=== PATIENT | female | born 1985 | race Caucasian/White ===

== ENCOUNTER 2018-01-19 01:21 | Emergency (ER) | payer SELFPAY ==
[2018-01-19] MEDS ORDERED: predniSONE 20 MG Tab PO STA (03:01)
--- NOTE | 2018-01-19 03:07 | EDM.PDOC ---
ED HPI GENERAL MEDICAL PROBLEM - General Chief Complaint: Allergic Reaction Stated Complaint: POSSIBLE ALLERGIC REACTION LEFT SIDE OF FACE Time Seen by Provider: 01/19/18 02:26 Source of Information: Reports: Patient, Family () History Limitations: Reports: No Limitations - History of Present Illness INITIAL COMMENTS - FREE TEXT/NARRATIVE: The patient states that she developed left upper and lower lip swelling, and tingling and numbness to the left side of her face, around 21:00 tonight. She states that she had some shortness of breath with chest tightness, but denies having wheezing. She states that her left ear hurt, and clicked when she swallowed, and that she had some difficulty swallowing. She denies trauma to the left side of her head or face, including having recently been lying on the left side of the head. She states that she took some Benadryl at home, and that her symptoms improved somewhat. 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 In the past, when she has consumed alcohol, she has developed pruritic hives on her head and neck, however, she states that it doesn't happen every time she drinks. The patient's PCP is Chen Field. Left Face Pain Score (Numeric/FACES): 6 - Related Data Allergies Allergy/AdvReac Type Severity Reaction Status Date / Time No Known Allergies Allergy Verified 01/19/18 01:43 Home Meds: Home Meds EPINEPHrine [Adrenaclick] 1 injection IM ASDIRECTED PRN #1 kit 01/19/18 [Rx] predniSONE [Prednisone] 1 tab PO QPM #3 tablet 01/19/18 [Rx] Past Medical History - Past Surgical History HEENT Surgical History: Reports: Oral Surgery ([place] teeth extraction) Female Surgical History: Reports: Tubal Ligation Social & Family History - Family History Family Medical History: Noncontributory - Tobacco Use Smoking Status *Q: Never Smoker - Alcohol Use Alcohol Use History: Yes Alcohol Use Frequency: Socially - Recreational Drug Use Recreational Drug Use: No - Living Situation & Occupation Living situation: Reports: , with Spouse, with Family (3 kids) Occupation: Employed (Sales at a hotel) ED ROS ALLERGIC REACTION - Review of Systems Review Of Systems: ROS reveals no pertinent complaints other than HPI. ED EXAM GENERAL NO PERIP PULSE - Physical Exam Exam: See Below Exam Limited By: No Limitations General Appearance: Alert, WD/WN, No Apparent Distress Eye Exam: Bilateral Eye: Normal Inspection Ears: Normal External Exam, Normal Canal, Hearing Grossly Normal, Normal TMs Nose: Normal Inspection, Normal Mucosa, No Blood Throat/Mouth: Normal Teeth, Normal Gums, Normal Oropharynx, Normal Voice, No Airway Compromise, Other (Left side of both upper and lower lips swollen, particularly the lower lip. Tongue is obviously swollen, although not causing airway obstruction.) Head: Atraumatic, Facial Swelling (Mild, left-sided) Neck: Normal Inspection, Supple, Non-Tender, Full Range of Motion. No: Lymphadenopathy (L), Lymphadenopathy (R) Respiratory/Chest: No Respiratory Distress, Lungs Clear, Normal Breath Sounds, No Accessory Muscle Use, Chest Non-Tender. No: Wheezing Cardiovascular: Normal Peripheral Pulses, Regular Rate, Rhythm, No Edema, No Gallop, No JVD, No Murmur, No Rub GI/Abdominal: Normal Bowel Sounds, Soft, Non-Tender, No Organomegaly, No Distention, No Abnormal Bruit, No Mass, Other (Obese) (Female) Exam: Deferred Rectal (Female) Exam: Deferred Back Exam: Normal Inspection, Full Range of Motion, NT Extremities: Normal Inspection, Normal Range of Motion, No Pedal Edema, Normal Capillary Refill Neurological: Alert, Oriented, Normal Cognition, No Motor/Sensory Deficits Psychiatric: Normal Affect Skin Exam: Warm, Dry, Intact, Normal Color, No Rash Course - Vital Signs Last Recorded V/S: Last Vital Signs Temp 36.4 C 01/19/18 01:43 Pulse 98 01/19/18 01:43 Resp 18 01/19/18 01:43 BP 148/92 H 01/19/18 01:43 Pulse Ox 100 01/19/18 01:43 - Orders/Labs/Meds Meds: Medications Discontinued Medications Generic Name Dose Route Start Last Admin Trade Name Carmine PRN Reason Stop Dose Admin Prednisone 60 mg 01/19/18 03:01 01/19/18 03:05 Prednisone PO 01/19/18 03:02 60 mg ONETIME STA Administration - Re-Assessments/Exams Free Text/Narrative Re-Assessment/Exam: 01/19/18 03:01 The patient appears to be having an allergic reaction to, likely, beer. She has some angioedema, glossitis, and facial swelling, although no uvular swelling. She had urticaria earlier. This appears to be the most severe reaction that she has had to alcohol. In addition to 3 additional days of prednisone, I will also prescribe an epinephrine pen, and refer her to the [facility] Dr. Davison. Departure - Departure Time of Disposition: 03:03 Disposition: Home, Self-Care 01 Condition: Fair Clinical Impression: Allergic reaction - Discharge Information Prescriptions: EPINEPHrine [Adrenaclick] 1 injection IM ASDIRECTED PRN #1 kit PRN Reason: Shortness Of Breath predniSONE [Prednisone] 1 tab PO QPM #3 tablet Instructions: Allergies, Adult, [id number] Referrals: Chen Field PA-C [Primary Care Provider] - Perry Davison MD [Ordering Only Provider] - Forms: ED Department Discharge Additional Instructions: You were seen in the emergency room for left lip and face swelling, shortness of breath, and difficulty swallowing after drinking a beer. Based on your history and physical examination, you MOST LIKELY suffered an allergic reaction to one of the ingredients in the beer. You have been started on oral prednisone. A prescription for prednisone has been sent to [facility], located across the street from the hospital. Take one tablet each evening, starting this evening, , 01/19/2018. A prescription for an epinephrine injectable kit has also been sent to the [facility]. You should give herself an injection in your anterolateral thigh for shortness of breath with wheezing, associated with an allergic reaction. It may be repeated after 15 minutes, but it is essential that you go to the nearest emergency room immediately if you ever require an epinephrine injection. Follow-up with the [facility] Dr. Davison at the next available appointment, for further evaluation. If any other problems, please do not hesitate to return to the ER.
== END 2018-01-19 03:45 | disposition home or self-care (01) ==
LOC: JD.ED 01:21
DX: T78.40XA Allergy, unspecified, initial encounter (principal)
CPT/HCPCS: 99283; A9270

== ENCOUNTER 2019-09-09 16:22 | Emergency (ER) | payer MEDICAID ==
--- NOTE | 2019-09-09 17:12 | EDM.PDOC ---
ED HPI GENERAL MEDICAL PROBLEM - General Chief Complaint: General Stated Complaint: MUSCLE PAIN Time Seen by Provider: 09/09/19 17:11 - History of Present Illness INITIAL COMMENTS - FREE TEXT/NARRATIVE: 34-year-old female presents the emergency room achy all over and fevers This started roughly 2 days ago aggressively getting worse. She is had some fevers with this no nausea no vomiting no significant cough. She is just achy all over and does not feel good. The patient did not have a flu shot this year. Patient is not on any routine medications. And she is not aware of any allergies. She is drinking plenty of fluids and voiding regularly. Generalized Pain Score (Numeric/FACES): 8 - Related Data Allergies Allergy/AdvReac Type Severity Reaction Status Date / Time No Known Allergies Allergy Verified 09/09/19 16:42 Home Meds: Home Meds Naproxen [Naprosyn] 500 mg PO Q12HR #20 tab 09/09/19 [Rx] Past Medical History - Past Health History Medical/Surgical History: Denies Medical/Surgical History - Past Surgical History HEENT Surgical History: Reports: Oral Surgery Female Surgical History: Reports: Tubal Ligation Social & Family History - Family History Family Medical History: Noncontributory - Tobacco Use Smoking Status *Q: Never Smoker Second Hand Smoke Exposure: No - Caffeine Use Caffeine Use: Reports: None - Recreational Drug Use Recreational Drug Use: No - Living Situation & Occupation Living situation: Reports: , with Spouse, with Family (3 kids) Occupation: Employed (Sales at a hotel) ED ROS GENERAL - Review of Systems Review Of Systems: See Below Constitutional: Reports: Fever. Denies: Chills HEENT: Reports: No Symptoms Respiratory: Reports: No Symptoms Cardiovascular: Reports: No Symptoms GI/Abdominal: Reports: No Symptoms : Reports: No Symptoms Musculoskeletal: Reports: Other (He has achy joints and muscles) Skin: Reports: No Symptoms Neurological: Reports: No Symptoms ED EXAM, GENERAL - Physical Exam Exam: See Below Exam Limited By: Uncooperative General Appearance: No Apparent Distress, Other (But uncomfortable but tolerates exam and is very cooperative) Eye Exam: Bilateral Eye: Normal Inspection Ears: Normal External Exam, Normal Canal, Hearing Grossly Normal, Normal TMs Nose: Normal Inspection, Normal Mucosa, No Blood Throat/Mouth: Normal Inspection, Normal Lips, Normal Teeth, Normal Gums, Normal Oropharynx, Normal Voice, No Airway Compromise Head: Atraumatic, Normocephalic Neck: Normal Inspection, Supple, Non-Tender, Full Range of Motion. No: Lymphadenopathy (L), Lymphadenopathy (R) Respiratory/Chest: No Respiratory Distress, Lungs Clear, Normal Breath Sounds Cardiovascular: Regular Rate, Rhythm, No Edema, No Murmur GI/Abdominal: Normal Bowel Sounds, Soft, Non-Tender Extremities: Other (Muscle pain especially in the lower extremities to a lesser degree the upper extremities she just hurts.) Skin Exam: Warm, Dry, Intact Lymphatic: No Adenopathy Course - Vital Signs Last Recorded V/S: Last Vital Signs Temp 38.2 C H 09/09/19 16:39 Pulse 118 H 09/09/19 16:39 Resp 20 09/09/19 16:39 BP 147/104 H 09/09/19 16:39 Pulse Ox 100 09/09/19 16:39 - Orders/Labs/Meds Meds: Medications Discontinued Medications Generic Name Dose Route Start Last Admin Trade Name Carmine PRN Reason Stop Dose Admin Ketorolac Tromethamine 30 mg 09/09/19 17:58 09/09/19 18:05 Toradol IM 09/09/19 17:59 30 mg ONETIME ONE Administration - Re-Assessments/Exams Free Text/Narrative Re-Assessment/Exam: 09/09/19 18:27 Influenza A is positive did discuss Tamiflu with the patient and she chooses not to do this she has been on Tamiflu in the past and it did not work well for her. Departure - Departure Time of Disposition: 18:28 Disposition: Left Without Being Seen 07 Clinical Impression: Influenza A - Discharge Information Prescriptions: Naproxen [Naprosyn] 500 mg PO Q12HR #20 tab Referrals: Chen Field PA-C [Primary Care Provider] - Forms: ED Department Discharge Additional Instructions: Return to the emergency room with any questions problems or worsening symptoms. Push lots of fluids you should be voiding every hour and a half while awake. Take the Naprosyn as directed twice daily with small meals. Follow-up in the clinic this week if needed Sepsis Event Note - Evaluation Sepsis Screening Result: No Definite Risk - Focused Exam Vital Signs: Vital Signs Temp Pulse Resp BP Pulse Ox 09/09/19 16:39 38.2 C H 118 H 20 147/104 H 100 Date Exam was Performed: 09/09/19 Time Exam was Performed: 18:23
[2019-09-09] MEDS ORDERED: Ketorolac 30 MG/ML SDV IM ONE (17:58)
== END 2019-09-09 18:36 | disposition home or self-care (01) ==
LOC: JD.ED 16:22
DX: J10.1 Influenza due to other identified influenza virus with other respiratory manifestations (principal)
CPT/HCPCS: 87804; 96372; 99283; J1885

== ENCOUNTER 2020-01-15 00:23 | Emergency (ER) | payer MEDICAID ==
--- NOTE | 2020-01-15 00:35 | EDM.PDOC ---
ED HPI GENERAL MEDICAL PROBLEM - General Chief Complaint: Abdominal Pain Stated Complaint: ABDOMINAL PAIN Time Seen by Provider: 01/15/20 00:30 Source of Information: Reports: Patient History Limitations: Reports: No Limitations - History of Present Illness INITIAL COMMENTS - FREE TEXT/NARRATIVE: TRIAGE NOTE -- Pt c/o abominal pain that started 30 min [employer]. States bilateral lower abdomen. Does not radiate. C/o nausea yesterday. Denies vomiting or diarrhea. Denies urinary s/s. [ End ] Above. Pain is in the lower abdomen. No vomiting at this time. No readily identified risk factors. Only abdominal procedure in the past was a tubal ligation. No treatment or other measure to moderate symptoms prior to arrival. No fever respiratory symptoms or other symptoms of acute medical illness otherwise. Bilateral Lower Abdomen Pain Score (Numeric/FACES): 4 - Related Data Allergies Allergy/AdvReac Type Severity Reaction Status Date / Time No Known Allergies Allergy Verified 01/15/20 00:30 Home Meds: Home Meds . [No Known Home Meds] 01/15/20 [History] Past Medical History - Past Health History Medical/Surgical History: Denies Medical/Surgical History - Past Surgical History HEENT Surgical History: Reports: Oral Surgery Female Surgical History: Reports: Tubal Ligation Social & Family History - Family History Family Medical History: Noncontributory - Caffeine Use Caffeine Use: Reports: None - Living Situation & Occupation Living situation: Reports: , with Spouse, with Family (3 kids) Occupation: Employed (Sales at a hotel) ED ROS GENERAL - Review of Systems Review Of Systems: Comprehensive ROS is negative, except as noted in HPI. ED EXAM, GI/ABD - Physical Exam Exam: See Below Exam Limited By: No Limitations General Appearance: Alert, WD/WN, No Apparent Distress Eyes: Bilateral: EOMI Ears: Normal External Exam Nose: Normal Inspection Throat/Mouth: Normal Inspection Head: Atraumatic, Normocephalic Neck: Normal Inspection, Supple Respiratory/Chest: No Respiratory Distress, Lungs Clear Cardiovascular: Regular Rate, Rhythm, No Edema GI/Abdominal Exam: Soft, Tender (Mild tenderness especially lower abdomen). No : Guarding, Rigid, Rebound Back Exam: Normal Inspection Extremities: Normal Inspection, Non-Tender Neurological: Alert, Oriented, No Motor/Sensory Deficits Psychiatric: Normal Affect Skin Exam: Warm, Dry Course - Vital Signs Last Recorded V/S: Last Vital Signs Temp 36.5 C 01/15/20 00:30 Pulse 73 01/15/20 00:30 Resp 14 01/15/20 00:30 BP 131/87 01/15/20 00:30 Pulse Ox 100 01/15/20 00:30 - Orders/Labs/Meds Labs: Laboratory Tests 01/15/20 01/15/20 01/15/20 Range/Units 00:55 00:55 00:55 WBC (3.98-10.04) K/mm3 RBC (3.98-5.22) M/mm3 Hgb (11.2-15.7) gm/dl Hct (34.1-44.9) % MCV (79.4-94.8) fl MCH (25.6-32.2) pg MCHC (32.2-35.5) g/dl RDW Std Deviation (36.4-46.3) fL Plt Count (182-369) K/mm3 MPV (9.4-12.3) fl Neutrophils % (Manual) (40-60) % Band Neutrophils % (0-10) % Lymphocytes % (Manual) (20-40) % Atypical Lymphs % % Monocytes % (Manual) (2-10) % Eosinophils % (Manual) (0.7-5.8) % Basophils % (Manual) (0.1-1.2) Platelet Estimate Plt Morphology Comment RBC Morph Comment Sodium (136-145) mEq/L Potassium (3.5-5.1) mEq/L Chloride (98-107) mEq/L Carbon Dioxide (21-32) mEq/L Anion Gap (5-15) BUN (7-18) mg/dL Creatinine (0.55-1.02) mg/dL Est Cr Clr Drug Dosing mL/min Estimated GFR (MDRD) (>60) mL/min BUN/Creatinine Ratio (14-18) Glucose (74-106) mg/dL Calcium (8.5-10.1) mg/dL Total Bilirubin (0.2-1.0) mg/dL AST (15-37) U/L ALT (14-59) U/L Alkaline Phosphatase (46-116) U/L Total Protein (6.4-8.2) g/dl Albumin (3.4-5.0) g/dl Globulin gm/dL Albumin/Globulin Ratio (1-2) Lipase (73-393) U/L Urine Color Yellow (Yellow) Urine Appearance Slt cloudy H (Clear) Urine pH 6.5 (5.0-8.0) Ur Specific [place] > or = 1.030 (1.005-1.030) Urine Protein Negative (Negative) Urine Glucose (UA) Negative (Negative) Urine Ketones Negative (Negative) Urine Occult Blood Negative (Negative) Urine Nitrite Negative (Negative) Urine Bilirubin Negative (Negative) Urine Urobilinogen 0.2 (0.2-1.0) Ur Leukocyte Esterase Negative (Negative) Urine HCG, Qual Negative (NEGATIVE) Urine Opiates Screen Negative (ALKYJV=477) Ur Buprenorphine Scrn Negative (CUTOFF=10) Ur Oxycodone Screen Negative (AJW1HS=294) Urine Methadone Screen Negative (FXKOHY=604) Ur Propoxyphene Screen Negative (XGCAUW=136) Ur Barbiturates Screen Negative (MFSFOY=416) Ur Tricyclics Screen Negative (PTVIKM=598) Ur Phencyclidine Scrn Negative (CUTOFF=25) Ur Amphetamine Screen Negative (YZHOQI=282) U Methamphetamines Scrn Negative (JHOUII=678) U Benzodiazepines Scrn Negative (FZNGUK=536) U Cocaine Metab Screen Negative (JVEGRH=665) U Marijuana (THC) Screen Negative (CUTOFF=50) 01/15/20 01/15/20 Range/Units 01:00 01:00 WBC 7.98 (3.98-10.04) K/mm3 RBC 4.70 (3.98-5.22) M/mm3 Hgb 14.0 (11.2-15.7) gm/dl Hct 43.2 (34.1-44.9) % MCV 91.9 (79.4-94.8) fl MCH 29.8 (25.6-32.2) pg MCHC 32.4 (32.2-35.5) g/dl RDW Std Deviation 44.3 (36.4-46.3) fL Plt Count 275 (182-369) K/mm3 MPV 8.9 L (9.4-12.3) fl Neutrophils % (Manual) 43 (40-60) % Band Neutrophils % 4 (0-10) % Lymphocytes % (Manual) 42 H (20-40) % Atypical Lymphs % 0 % Monocytes % (Manual) 7 (2-10) % Eosinophils % (Manual) 2 (0.7-5.8) % Basophils % (Manual) 2 H (0.1-1.2) Platelet Estimate Adequate Plt Morphology Comment Normal RBC Morph Comment Normal Sodium 142 (136-145) mEq/L Potassium 3.9 (3.5-5.1) mEq/L Chloride 106 (98-107) mEq/L Carbon Dioxide 27 (21-32) mEq/L Anion Gap 12.9 (5-15) BUN 18 (7-18) mg/dL Creatinine 0.7 (0.55-1.02) mg/dL Est Cr Clr Drug Dosing 104.01 mL/min Estimated GFR (MDRD) > 60 (>60) mL/min BUN/Creatinine Ratio 25.7 H (14-18) Glucose 93 (74-106) mg/dL Calcium 8.6 (8.5-10.1) mg/dL Total Bilirubin 0.2 (0.2-1.0) mg/dL AST 13 L (15-37) U/L ALT 20 (14-59) U/L Alkaline Phosphatase 25 L (46-116) U/L Total Protein 7.3 (6.4-8.2) g/dl Albumin 3.5 (3.4-5.0) g/dl Globulin 3.8 gm/dL Albumin/Globulin Ratio 0.9 L (1-2) Lipase 162 (73-393) U/L Urine Color (Yellow) Urine Appearance (Clear) Urine pH (5.0-8.0) Ur Specific [place] (1.005-1.030) Urine Protein (Negative) Urine Glucose (UA) (Negative) Urine Ketones (Negative) Urine Occult Blood (Negative) Urine Nitrite (Negative) Urine Bilirubin (Negative) Urine Urobilinogen (0.2-1.0) Ur Leukocyte Esterase (Negative) Urine HCG, Qual (NEGATIVE) Urine Opiates Screen (CEIATC=443) Ur Buprenorphine Scrn (CUTOFF=10) Ur Oxycodone Screen (MZN6GH=508) Urine Methadone Screen (FGROYL=520) Ur Propoxyphene Screen (TRWFQD=514) Ur Barbiturates Screen (LVXXVF=764) Ur Tricyclics Screen (AQHSPH=284) Ur Phencyclidine Scrn (CUTOFF=25) Ur Amphetamine Screen (DROQZZ=765) U Methamphetamines Scrn (EMTIVE=955) U Benzodiazepines Scrn (UJZEUG=304) U Cocaine Metab Screen (DIBSQF=348) U Marijuana (THC) Screen (CUTOFF=50) Meds: Medications Discontinued Medications Generic Name Dose Route Start Last Admin Trade Name Carmine PRN Reason Stop Dose Admin Sodium Chloride 1,000 mls @ 1,000 mls/hr 01/15/20 00:48 01/15/20 01:05 Normal Saline IV 01/15/20 01:47 1,000 mls/hr ONETIME ONE Administration - Re-Assessments/Exams Free Text/Narrative Re-Assessment/Exam: 01/15/20 01:58 The patient is received IV fluids and feels better. There are no salient lab abnormals at all. The patient's physical exam remains fairly benign. There is slight lower abdominal tenderness on deep palpation but abdomen is perfectly soft. Discussed fully with patient and . Recommend clear liquid diet at home for at least 12 hours. Should there be any increased abdominal pain, fever, vomiting return to ER immediately. At the present time on the basis of the mildness of the presentation and absence of salient findings imaging was deferred. Departure - Departure Time of Disposition: 02:00 Disposition: Home, Self-Care 01 Condition: Good Clinical Impression: Abdominal discomfort Nausea & vomiting Qualifiers: Vomiting type: unspecified Vomiting Intractability: non-intractable Qualified Code(s): R11.2 - Nausea with vomiting, unspecified - Discharge Information *PRESCRIPTION DRUG MONITORING PROGRAM REVIEWED*: Not Applicable *COPY OF PRESCRIPTION DRUG MONITORING REPORT IN PATIENT JESSA: Not Applicable Referrals: Chen Field PA-C [Primary Care Provider] - Forms: ED Department Discharge Additional Instructions: You have been seen for abdominal pain and nausea and vomiting. You have received IV fluids for this with some improvement. In light of the mildness of the presentation imaging of the abdomen was deferred. If you have any increased abdominal pain return to ER immediately. For any vomiting return immediately. For any fever or any other troubling symptom return to the ER. Recommend follow-up by primary. Call for instructions and an appointment. Sepsis Event Note - Evaluation Sepsis Screening Result: No Definite Risk - Focused Exam Vital Signs: Vital Signs Temp Pulse Resp BP Pulse Ox 01/15/20 00:30 36.5 C 73 14 131/87 100 Date Exam was Performed: 01/15/20 Time Exam was Performed: 01:58
[2020-01-15] MEDS ORDERED: Sodium Chloride 0.9% 1,000 ML IV ONE (00:48)
== END 2020-01-15 02:13 | disposition home or self-care (01) ==
LOC: JD.ED 00:23
DX: R10.31 Right lower quadrant pain (principal); R10.32 Left lower quadrant pain; R11.2 Nausea with vomiting, unspecified; Z98.51 Tubal ligation status
CPT/HCPCS: 36415; 80053; 80306; 81003; 81025; 83690; 85007; 85027; 96360; 99284; J7030; 99282

== ENCOUNTER 2020-02-19 01:28 | Emergency (ER) | payer MEDICAID ==
[2020-02-19] MEDS ORDERED: Ondansetron 4 MG/2 ML SDV IVPUSH ONE (01:53)
[2020-02-19] MEDS ORDERED: Sodium Chloride 0.9% 1,000 ML IV SCH (02:00)
[2020-02-19] MEDS ORDERED: Ketorolac 30 MG/ML SDV IVPUSH STA (02:12)
--- NOTE | 2020-02-19 02:15 | EDM.PDOC ---
ED HPI GENERAL MEDICAL PROBLEM - General Chief Complaint: Abdominal Pain Stated Complaint: [facility] Time Seen by Provider: 02/19/20 01:37 Source of Information: Reports: Patient History Limitations: Reports: No Limitations - History of Present Illness INITIAL COMMENTS - FREE TEXT/NARRATIVE: Mrs. Barrett is a 34-year-old woman with a past surgical history significant for a bilateral tubal ligation, who now presents to the ED by EMS with a complaint of lower abdominal cramps that radiate through to her lower back, along with nausea and watery diarrhea, that all began just minutes prior to presenting to the ED. She did not take any [id number] or home remedies prior to calling EMS. Medical records indicate that the patient was seen in this ED on 01/15/2020 for essentially the same complaint. At that time, the patient was found to be hemodynamically stable, afebrile, saturating 100% on room air. Her abdominal exam revealed tenderness to the lower abdomen, but softness to palpation. Work- up at that time included a CBC, CMP, lipase level, urinalysis, urine test, and urine drug screen, all of which were completely normal. She was given IV fluid, alone, without pain medication, and her symptoms resolved. She was discharged home with the recommendation to follow-up with her PCP, which she has not done. Here in the ED tonight, the patient is found to be hemodynamically stable, afebrile, again saturating 100% on room air. She is crying. The patient states that her menstrual periods are irregular, but she believes that she is about to start her menstrual period. Other than tonight's symptoms, the patient denies recent fever, chills, sore throat, ear pain, nasal or sinus congestion, cough, dyspnea, chest pain, palpitations, nausea, vomiting, constipation, diarrhea, abdominal pain, urinary symptoms, recent weight gain or weight loss, recent bloody bowel movements or black bowel movements, recent joint aches, headaches, or rashes. The patient's PCP is EZE Sher. Lower Abdomen Pain Score (Numeric/FACES): 10 - Related Data Allergies Allergy/AdvReac Type Severity Reaction Status Date / Time No Known Allergies Allergy Verified 02/19/20 01:36 Home Meds: Home Meds . [No Known Home Meds] 01/15/20 [History] Past Medical History Endocrine/Metabolic History: Reports: Obesity/BMI 30+ - Past Surgical History HEENT Surgical History: Reports: Oral Surgery (wisdom teeth extraction) Female Surgical History: Reports: Tubal Ligation Social & Family History - Family History Family Medical History: Noncontributory - Tobacco Use Smoking Status *Q: Never Smoker Second Hand Smoke Exposure: No - Caffeine Use Caffeine Use: Reports: None - Alcohol Use Alcohol Use History: Yes Alcohol Use Frequency: Rarely - Recreational Drug Use Recreational Drug Use: No - Living Situation & Occupation Living situation: Reports: , with Spouse, with Family (3 kids) Occupation: Unemployed ED ROS GENERAL - Review of Systems Review Of Systems: Comprehensive ROS is negative, except as noted in HPI. ED EXAM, GI/ABD - Physical Exam Exam: See Below Exam Limited By: No Limitations General Appearance: Alert, WD/WN, Mild Distress (Crying) Eyes: Bilateral: Normal Appearance, EOMI Ears: Normal External Exam, Hearing Grossly Normal Nose: Normal Inspection Throat/Mouth: Normal Inspection, Normal Lips, Normal Voice, No Airway Compromise Head: Atraumatic, Normocephalic Neck: Normal Inspection, Full Range of Motion Respiratory/Chest: No Respiratory Distress, Lungs Clear, Normal Breath Sounds, No Accessory Muscle Use Cardiovascular: Normal Peripheral Pulses, Regular Rate, Rhythm, No Edema, No Gallop, No JVD, No Murmur, No Rub GI/Abdominal Exam: Normal Bowel Sounds (active), Soft, No Organomegaly, No Distention, No Abnormal Bruit, No Mass, Tender (Lower abdomen, possibly greater on the right than the left. Nontender elsewhere.) (Female) Exam: Deferred Rectal (Female) Exam: Deferred Back Exam: Normal Inspection, Full Range of Motion, NT Extremities: Normal Inspection, Normal Range of Motion, No Pedal Edema, Normal Capillary Refill Neurological: Alert, Oriented, Normal Cognition, No Motor/Sensory Deficits Psychiatric: Tearful Skin Exam: Warm, Dry, Intact, Normal Color, No Rash Course - Vital Signs Last Recorded V/S: Last Vital Signs Temp 36.7 C 02/19/20 01:31 Pulse 85 02/19/20 03:15 Resp 18 02/19/20 03:15 BP 133/91 H 02/19/20 03:15 Pulse Ox 100 02/19/20 03:15 - Orders/Labs/Meds Labs: Laboratory Tests 02/19/20 02/19/20 02/19/20 Range/Units 02:00 02:00 02:10 WBC 8.65 (3.98-10.04) K/mm3 RBC 4.07 (3.98-5.22) M/mm3 Hgb 12.2 D (11.2-15.7) gm/dl Hct 37.7 (34.1-44.9) % MCV 92.6 (79.4-94.8) fl MCH 30.0 (25.6-32.2) pg MCHC 32.4 (32.2-35.5) g/dl RDW Std Deviation 44.0 (36.4-46.3) fL Plt Count 279 (182-369) K/mm3 MPV 9.2 L (9.4-12.3) fl Neutrophils % (Manual) 67 H (40-60) % Band Neutrophils % 0 (0-10) % Lymphocytes % (Manual) 25 (20-40) % Atypical Lymphs % 0 % Monocytes % (Manual) 7 (2-10) % Eosinophils % (Manual) 1 (0.7-5.8) % Basophils % (Manual) 0 L (0.1-1.2) Platelet Estimate Adequate RBC Morph Comment Normal Sodium 142 (136-145) mEq/L Potassium 3.7 (3.5-5.1) mEq/L Chloride 108 H (98-107) mEq/L Carbon Dioxide 23 (21-32) mEq/L Anion Gap 14.7 (5-15) BUN 14 (7-18) mg/dL Creatinine 0.6 (0.55-1.02) mg/dL Est Cr Clr Drug Dosing 116.64 mL/min Estimated GFR (MDRD) > 60 (>60) mL/min BUN/Creatinine Ratio 23.3 H (14-18) Glucose 121 H (74-106) mg/dL Calcium 8.1 L (8.5-10.1) mg/dL Total Bilirubin 0.2 (0.2-1.0) mg/dL AST 18 (15-37) U/L ALT 21 (14-59) U/L Alkaline Phosphatase 17 L (46-116) U/L Total Protein 6.5 (6.4-8.2) g/dl Albumin 3.2 L (3.4-5.0) g/dl Globulin 3.3 gm/dL Albumin/Globulin Ratio 1.0 (1-2) Urine Color Yellow (Yellow) Urine Appearance Clear (Clear) Urine pH 6.5 (5.0-8.0) Ur Specific [place] > or = 1.030 (1.005-1.030) Urine Protein Negative (Negative) Urine Glucose (UA) Negative (Negative) Urine Ketones Negative (Negative) Urine Occult Blood 2+ H (Negative) Urine Nitrite Negative (Negative) Urine Bilirubin Negative (Negative) Urine Urobilinogen 0.2 (0.2-1.0) Ur Leukocyte Esterase Negative (Negative) Urine RBC 20-30 H (0-5) /hpf Urine WBC 0-5 (0-5) /hpf Ur Epithelial Cells 0-5 (0-5) /hpf Urine Bacteria Few (FEW) /hpf Urine Mucus Few (FEW) /hpf Urine HCG, Qual (NEGATIVE) 02/19/20 Range/Units 02:10 WBC (3.98-10.04) K/mm3 RBC (3.98-5.22) M/mm3 Hgb (11.2-15.7) gm/dl Hct (34.1-44.9) % MCV (79.4-94.8) fl MCH (25.6-32.2) pg MCHC (32.2-35.5) g/dl RDW Std Deviation (36.4-46.3) fL Plt Count (182-369) K/mm3 MPV (9.4-12.3) fl Neutrophils % (Manual) (40-60) % Band Neutrophils % (0-10) % Lymphocytes % (Manual) (20-40) % Atypical Lymphs % % Monocytes % (Manual) (2-10) % Eosinophils % (Manual) (0.7-5.8) % Basophils % (Manual) (0.1-1.2) Platelet Estimate RBC Morph Comment Sodium (136-145) mEq/L Potassium (3.5-5.1) mEq/L Chloride (98-107) mEq/L Carbon Dioxide (21-32) mEq/L Anion Gap (5-15) BUN (7-18) mg/dL Creatinine (0.55-1.02) mg/dL Est Cr Clr Drug Dosing mL/min Estimated GFR (MDRD) (>60) mL/min BUN/Creatinine Ratio (14-18) Glucose (74-106) mg/dL Calcium (8.5-10.1) mg/dL Total Bilirubin (0.2-1.0) mg/dL AST (15-37) U/L ALT (14-59) U/L Alkaline Phosphatase (46-116) U/L Total Protein (6.4-8.2) g/dl Albumin (3.4-5.0) g/dl Globulin gm/dL Albumin/Globulin Ratio (1-2) Urine Color (Yellow) Urine Appearance (Clear) Urine pH (5.0-8.0) Ur Specific [place] (1.005-1.030) Urine Protein (Negative) Urine Glucose (UA) (Negative) Urine Ketones (Negative) Urine Occult Blood (Negative) Urine Nitrite (Negative) Urine Bilirubin (Negative) Urine Urobilinogen (0.2-1.0) Ur Leukocyte Esterase (Negative) Urine RBC (0-5) /hpf Urine WBC (0-5) /hpf Ur Epithelial Cells (0-5) /hpf Urine Bacteria (FEW) /hpf Urine Mucus (FEW) /hpf Urine HCG, Qual Negative (NEGATIVE) Meds: Medications Discontinued Medications Generic Name Dose Route Start Last Admin Trade Name Freq PRN Reason Stop Dose Admin Sodium Chloride 1,000 mls @ 150 mls/hr 02/19/20 02:00 02/19/20 02:19 Normal Saline IV 150 mls/hr ASDIRECTED JOLENE Administration Ketorolac Tromethamine 30 mg 02/19/20 02:12 02/19/20 02:19 Toradol IVPUSH 02/19/20 02:13 30 mg ONETIME STA Administration Ondansetron HCl 4 mg 02/19/20 01:53 02/19/20 02:19 Zofran IVPUSH 02/19/20 01:54 4 mg ONETIME ONE Administration - Re-Assessments/Exams Free Text/Narrative Re-Assessment/Exam: 02/19/20 01:56 As above, the patient developed lower abdominal cramps that radiate through to her lower back, nausea, and watery diarrhea, just a few minutes prior to presenting to the ED. her symptoms are essentially the same as when she presented to this ED on 01/15/2020. At that time, she was found to have a soft abdomen with lower abdominal tenderness. A work-up that included blood work, a urinalysis, urine test, and a urine drug screen were all completely normal. Her symptoms resolved after IV fluid, alone, without the need for any pain medication. On examination today, she again has lower abdominal tenderness, but her abdomen is soft with very active bowel sounds. The fact that her symptoms occurred 1 month ago strongly suggest that her pain may be due to dysmenorrhea, indeed, while the patient states that she has irregular menstrual periods, she stated that she believes that she is about to begin her menstrual period. Unfortunately, there are no imaging studies to prove dysmenorrhea. Because her abdomen is soft with active bowel sounds, and because her very similar symptoms resolved with IV fluid alone last month, I do not feel that it would be in the patient's best interest for me to order an imaging study of the patient's abdomen or pelvis at this time. For now, I have ordered blood work, a urinalysis, and a urine test, along with IV Zofran, IV Toradol, and IV fluid. 02/19/20 03:01 Notified by January OROZCO that the patient is feeling much better, with her pain now down to a "3". 02/19/20 03:17 The patient's CBC is unremarkable. Her CMP is remarkable for a blood glucose modestly elevated at 121, with the remainder of her CMP being unremarkable. Her urinalysis is remarkable for 2+ occult blood with 20-30 RBCs, leukocyte esterase negative with 0-5 WBCs, nitrite negative with few bacteria, and 0-5 squamous epithelial cells. Her urine test is negative. 02/19/20 03:19 Test results discussed with the patient. She was sleeping when I entered her room. I explained that I suspect that her symptoms are due to her menstrual periods, and suggested that she talk to her PCP about the possibility of starting control pills to help ameliorate her symptoms. In the meantime, however, she can apply heating pads and take over the counter ibuprofen. The patient stated that she feels well enough to go home. Departure - Departure Time of Disposition: 03:22 Disposition: Home, Self-Care 01 Condition: Good Clinical Impression: Dysmenorrhea - Discharge Information *PRESCRIPTION DRUG MONITORING PROGRAM REVIEWED*: Not Applicable *COPY OF PRESCRIPTION DRUG MONITORING REPORT IN PATIENT JESSA: Not Applicable Instructions: Dysmenorrhea, [id number] Referrals: Chen Field PA-C [Primary Care Provider] - Forms: ED Department Discharge Additional Instructions: You were seen in the emergency room for sudden onset lower abdominal cramps that radiated through to your lower back, along with nausea and watery diarrhea. Work-up in the ER included blood work, a urinalysis, and a urine test, all of which were unremarkable. You had significant relief following IV fluid, IV Toradol, and IV Zofran. Based on your history, physical exam, and ER tests, your pain is most likely due to menstrual cramps, a condition known as dysmenorrhea. In the short-term, we recommend that you apply heating pads and take [id number] ibuprofen, 3 tablets (600 mg) up to every 8 hours, with food, as needed for discomfort, however, in the long-term, we recommend that you follow-up with your PCP, EZE Sher, to discuss the possibility of taking control pills to help ameliorate your symptoms. If any other problems, please do not hesitate to return to the ER. Sepsis Event Note (ED) - Evaluation Sepsis Screening Result: No Definite Risk - Focused Exam Vital Signs: Vital Signs Temp Pulse Resp BP Pulse Ox 02/19/20 03:15 85 18 133/91 H 100 02/19/20 01:31 36.7 C 91 22 H 125/93 H 100
== END 2020-02-19 03:35 | disposition home or self-care (01) ==
LOC: JD.ED 01:28
DX: N94.6 Dysmenorrhea, unspecified (principal); E66.9 Obesity, unspecified; Z68.26 Body mass index [BMI] 26.0-26.9, adult
CPT/HCPCS: 36415; 80053; 81001; 81025; 85007; 85027; 96361; 96374; 96375; 99284; J1885; J2405; J7030; 99283

== ENCOUNTER 2021-09-03 23:12 | Emergency (ER) | payer MEDICAID ==
[2021-09-03] MEDS ORDERED: Ketorolac 15 MG/ML SDV IVPUSH ONE (23:41)
[2021-09-03] MEDS ORDERED: Ondansetron 4 MG/2 ML SDV IVPUSH ONE (23:41)
[2021-09-03] MEDS ORDERED: Lactated Ringers 1,000 ML IV ONE (23:41)
== END 2021-09-04 03:08 | disposition home or self-care (01) ==
LOC: JD.ED 23:12
DX: N83.202 Unspecified ovarian cyst, left side (principal); E66.9 Obesity, unspecified; Z68.24 Body mass index [BMI] 24.0-24.9, adult
CPT/HCPCS: 36415; 74176; 76856; 80053; 81001; 83605; 85025; 96374; 96375; 99285; J1885; J2405; J7120

== ENCOUNTER 2023-07-17 23:17 | Emergency (ER) | payer MEDICAID ==
[2023-07-18 00:19] LABS: BASOPHILS PERCENT AUTO 0.5 % (0.0-1.0); EOSINOPHILS ABSOLUTE AUTO 0.4 K/mm3 (0.0-0.4); EOSINOPHILS PERCENT AUTO 4.4 % (0.0-6.0); HEMATOCRIT 36.9 % (37.0-47.0); IMMATURE GRAN ABSOLUTE AUTO 0.02 K/mm3 (0.00-0.05); IMMATURE GRAN PERCENT AUTO 0.3 % (0.0-0.4); LYMPHOCYTES PERCENT AUTO 24.6 % (24.0-44.0); MEAN CORPUSCULAR HEMOGLOBIN 28.6 pg (28.0-32.0); MEAN CORPUSCULAR HGB CONC 32.5 g/dl (32.0-36.0); MEAN CORPUSCULAR VOLUME 88.1 fl (83.0-99.0); MEAN PLATELET VOLUME 8.4 fl (9.4-12.3); MONOCYTES ABSOLUTE AUTO 0.6 K/mm3 (0.0-0.8); MONOCYTES PERCENT AUTO 7.4 % (0.0-8.0); NEUTROPHILS PERCENT AUTO 62.8 % (41.0-71.0); PLATELET COUNT,PLT 301 K/mm3 (150-400); RED BLOOD CELL COUNT 4.19 M/mm3 (4.10-5.30); WHITE BLOOD CELL COUNT,WBC 7.94 K/mm3 (3.9-11.3)
[2023-07-18 00:39] LABS: INR 0.96; PROTHROMBIN TIME 10.3 SECONDS (9.7-12.0)
[2023-07-18 00:40] LABS: PTT,PARTIAL THROMBOPLSTIN TIME 29.6 SECONDS (21.7-31.4)
[2023-07-18] MEDS ORDERED: Acetaminophen/HYDROcodone 325-5 MG Tab PO ONE (01:20)
== END 2023-07-18 01:27 | disposition home or self-care (01) ==
LOC: JD.ED 23:17
DX: S80.12XA Contusion of left lower leg, initial encounter (principal); E66.9 Obesity, unspecified; W20.8XXA Other cause of strike by thrown, projected or falling object, initial encounter
CPT/HCPCS: 36415; 85025; 85610; 85730; 99283; A9270; 99282

== ENCOUNTER 2023-08-01 03:26 | Emergency (ER) | payer MEDICAID ==
[2023-08-01] MEDS ORDERED: HYDROmorphone 1 MG/ML Syringe IM ONE ×2 (03:45→05:36)
[2023-08-01 03:57] LABS: BASOPHILS PERCENT AUTO 0.7 % (0.0-1.0); EOSINOPHILS ABSOLUTE AUTO 0.2 K/mm3 (0.0-0.4); EOSINOPHILS PERCENT AUTO 2.8 % (0.0-6.0); HEMATOCRIT 33.4 % (37.0-47.0); HEMOGLOBIN 10.7 gm/dl (12.0-16.0); IMMATURE GRAN ABSOLUTE AUTO 0.01 K/mm3 (0.00-0.05); IMMATURE GRAN PERCENT AUTO 0.2 % (0.0-0.4); LYMPHOCYTES PERCENT AUTO 16.9 % (24.0-44.0); MEAN CORPUSCULAR HEMOGLOBIN 28.6 pg (28.0-32.0); MEAN CORPUSCULAR VOLUME 89.3 fl (83.0-99.0); MEAN PLATELET VOLUME 8.2 fl (9.4-12.3); MONOCYTES ABSOLUTE AUTO 0.5 K/mm3 (0.0-0.8); MONOCYTES PERCENT AUTO 8.2 % (0.0-8.0); NEUTROPHILS ABSOLUTE AUTO 4.3 K/mm3 (1.8-7.7); NEUTROPHILS PERCENT AUTO 71.2 % (41.0-71.0); PLATELET COUNT,PLT 227 K/mm3 (150-400); RED BLOOD CELL COUNT 3.74 M/mm3 (4.10-5.30); WHITE BLOOD CELL COUNT,WBC 6.08 K/mm3 (3.9-11.3)
[2023-08-01 04:15] LABS: INR 0.97; PROTHROMBIN TIME 10.4 SECONDS (9.7-12.0)
[2023-08-01 04:17] LABS: PTT,PARTIAL THROMBOPLSTIN TIME 29.9 SECONDS (21.7-31.4)
[2023-08-01 04:19] LABS: A/G RATIO 0.9 (1-2); ALBUMIN 3.3 g/dl (3.4-5.0); ANION GAP 12.5 (5-15); BILIRUBIN TOTAL 0.5 mg/dL (0.2-1.0); BUN/CREATININE RATIO 15.6 (14-18); CALCIUM 8.5 mg/dL (8.5-10.1); CREATININE 0.9 mg/dL (0.55-1.02); EST CRCL DRUG DOSING (CG) 74.77 mL/min; POTASSIUM,K 3.5 mEq/L (3.5-5.1)
== END 2023-08-01 07:09 | disposition home or self-care (01) ==
LOC: JD.ED 03:26 → EEVIPCON 03:26 → JD.ED 07:09
DX: S80.11XA Contusion of right lower leg, initial encounter (principal); S90.01XA Contusion of right ankle, initial encounter; E66.9 Obesity, unspecified; Z68.22 Body mass index [BMI] 22.0-22.9, adult; W20.8XXA Other cause of strike by thrown, projected or falling object, initial encounter
CPT/HCPCS: 36415; 73590; 80053; 85025; 85610; 85730; 93971; 96372; 99284; J1170

== ENCOUNTER 2024-09-08 12:10 | Emergency (ER) | payer SELFPAY ==
[2024-09-08] MEDS: Ketorolac 30 MG/ML SDV IM ONE (13:48)
[2024-09-08] MEDS: Cephalexin 500 MG Cap PO ONE (13:48)
== END 2024-09-08 14:15 | disposition home or self-care (01) ==
LOC: JD.ED 12:10
DX: S61.215A Laceration without foreign body of left ring finger without damage to nail, initial encounter (principal); W49.04XA Ring or other jewelry causing external constriction, initial encounter; Y93.89 Activity, other specified
CPT/HCPCS: 96372; 99283; A9270; J1885

== ENCOUNTER 2025-03-12 05:17 | Emergency (ER) | payer MEDICAID ==
[2025-03-12] MEDS: Ketorolac 30 MG/ML SDV IM ONE (06:09)
[2025-03-12] MEDS: cefTRIAXone 1 GM, Lidocaine 1% 2.1 ML IM ONE (06:10)
== END 2025-03-12 06:45 | disposition home or self-care (01) ==
LOC: JD.ED 05:17
DX: S41.152A Open bite of left upper arm, initial encounter (principal); E66.9 Obesity, unspecified; Z79.899 Other long term (current) drug therapy; W54.0XXA Bitten by dog, initial encounter
CPT/HCPCS: 96372; 99283; J0696; J1885; J2003